=== PATIENT | female | born 1950 | race Caucasian/White ===

== ENCOUNTER 2018-08-19 12:53 | Inpatient (IN) | payer MEDICARE, OTHER ==
[~2018-08-19] VITALS: Ht 165.1 cm; Wt 81.0 kg
[~2018-08-19 12:53] MED LIST: ASCO-96 PO; BILB100C PO; BISA10SU54 PR; CALC-141 PO; CHOL400T2 PO; CYAN1TAB29 PO; GARL1CAP3 PO; HYDR2TAB29 PO; LISI-170 PO; MAGN400O7 PO; METH750T87 PO; POTASSIUM PO; RANI150C PO; SENN8.6T98 PO; VITA400C43 PO; selenium PO; vitamin b6 PO
--- NOTE | 2018-08-19 12:53 | NUR ---
BIBA from home c/o dizziness since 0700 this AM, worsens with repositioning, +NV, denies CP or SOB; PIV, 4mg zofran, BG [address] [employer] per EMS; pt changed into gown, responds approp to staff, comfort measures provided, sister at BS, call light within reach; cardiac, NIBP & SpO2 monitors in place.
[2018-08-19] MEDS ORDERED: ONDANSETRON 2MG/ML, 2ML IVPush ONE (13:00)
[2018-08-19] MEDS ORDERED: SODIUM CHLORIDE FLUSH 10ML SYR IVF ONE (13:00)
[2018-08-19] MEDS ORDERED: DIAZEPAM 5 MG/ML, 2ML IVPush ONE (13:00)
--- NOTE | 2018-08-19 13:10 | NUR ---
seen by PA, report given to Jessica ZARATE.
[2018-08-19] MEDS ORDERED: ONDANSETRON 2MG/ML, 2ML ONE (13:15)
--- NOTE | 2018-08-19 13:18 | NUR ---
Sent yellow slip to pharmacy for med request per EMAR. Recieved report from ELLIOT Ascencio. Assuming care of pt.
[2018-08-19 13:23] LABS: MD YES
[2018-08-19 13:26] LABS: ANION GAP 5 mmol/L (5-15); CALCIUM 8.9 mg/dL (8.5-10.1); CHLORIDE 106 mmol/L (98-107); CREATININE 0.83 mg/dL (0.55-1.02)
[2018-08-19 13:36] LABS: MEAN CORPUSCULAR HEMOGLOBIN 19.4 pg (27.0-34.8); PLATELET COUNT 305 x10^3/uL (130-400); RED BLOOD COUNT 4.32 x10^6/uL (3.82-5.3); RED CELL DISTRIBUTION WIDTH 19.6 % (9.6-15.2)
--- NOTE | 2018-08-19 13:39 | NUR ---
Placed bedpan under pt per request. Pt appreciative.
[2018-08-19 13:52] LABS: BASOPHILS % (AUTO) 0 % (0-1); EOSINOPHILS # (AUTO) 0.06 x10^3/uL (0-0.4); EOSINOPHILS % (AUTO) 1 % (1-7); LYMPHOCYTES # (AUTO) 0.94 x10^3/uL (1-3.4); LYMPHOCYTES % (AUTO) 11 % (22-44); MONOCYTES # (AUTO) 0.28 x10^3/uL (0.2-0.8); MONOCYTES % (AUTO) 3 % (2-9); NEUTROPHILS # (AUTO) 7.52 x10^3/uL (1.8-6.8); NEUTROPHILS % (AUTO) 86 % (42-75)
[2018-08-19 13:53] LABS: MEAN CORPUSCULAR HGB CONC 29.8 g/dL (32.4-35.8)
--- NOTE | 2018-08-19 13:55 | NUR ---
Removed pt from bedpan. Pt appreciative. Provided medicaiton per EMAR. NICOLASAN. No other needs expressed. Provided warm blankets for comfort measures. All safety measures in place, call light within reach.
[2018-08-19 13:56] LABS: ANISOCYTOSIS 1+; BAND#(MANUAL) 0.09 x10^3/uL; BANDS%(MANUAL) 1 % (0-7); EOS#(MANUAL) 0.09 x10^3/uL (0.0-0.4); EOS% (MANUAL) 1 % (1-7); LYMPH#(MANUAL) 1.06 x10^3/uL (1-3.4); LYMPHS% (MANUAL) 12 % (22-44); MONOS#(MANUAL) 0.09 x10^3/uL (0.3-2.7); MONOS% (MANUAL) 1 % (2-9); SEG#(MANUAL) 7.48 x10^3/uL (1.8-6.8); SEGS% (MANUAL) 85 % (42-75)
[2018-08-19 13:57] LABS: HYPOCHROMIA 2+; MICROCYTOSIS 2+; POLYCHROMASIA 1+
[2018-08-19 13:58] LABS: OVALOCYTES 1+; TARGET CELLS 1+
[2018-08-19 14:00] LABS: <PLATELET ESTIMATE> ADEQUATE; LARGE PLATELETS 1+
--- NOTE | 2018-08-19 15:24 | NUR ---
Pt back to room CT. Pt requesting water. Provided pt water. Assisted pt to sitting up with head of bed approximately at 30*. Pt states, "oh wow, my neck is starting to feel better, and I didn't get dizzy." NADN. Pt remains connceted to NIBP, continous pulse ox, and fibreglass gun hand. Call light within reach. All safety measures in place.
[2018-08-19] MEDS ORDERED: OMNIPAQUE 350 MG/ML, 100ML BOTTLE ONE (15:32)
[2018-08-19] MEDS ORDERED: MECLIZINE CHEWABLE 25 MG TAB PO ONE (16:00)
[2018-08-19] MEDS ORDERED: MECLIZINE CHEWABLE 25 MG TAB ONE (16:20)
--- NOTE | 2018-08-19 16:23 | NUR ---
Provided pt medication per EMAR. Pt beginning to feel dizzy and nauseated again. Pt resting on gurney connected to all monitors and 2L oxygen NC. All safety measures in place. Call light within reach. Family at bedside. Pt states, "I am dizzy and have a wave of nausea".
[2018-08-19] MEDS ORDERED: PROCHLORPERAZINE 5 MG/ML, 2ML ONE (17:04)
--- NOTE | 2018-08-19 17:16 | NUR ---
Provided medication per ED MD verbal order and SRINIVASARRudy MAKI Pt appreciative.
[2018-08-19] MEDS ORDERED: SCOPOLAMINE PATCH, 1.5MG PATCH.TD72 TD ONE (17:30)
[2018-08-19] MEDS ORDERED: PROCHLORPERAZINE 5 MG/ML, 2ML IVPush ONE (17:30)
--- NOTE | 2018-08-19 18:03 | NUR ---
Provided ice chips per pt request. Provided medication per EMAR. Pt appreciative. No other needs expressed at this time. Family at bedside. Call light within reach.
--- NOTE | 2018-08-19 18:56 | NUR ---
Provided bedside report to ELLIOT Santiago. All questions answered. ELLIOT Santiago assuming care of pt.
--- NOTE | 2018-08-19 19:32 | NUR ---
PT PLACED ON BEDPAN, ABLE TO USE BEDPAN TO VOID. PT RESTING COMFORTABLY IN BED, SISTER AT BEDSIDE.
[2018-08-19] MEDS ORDERED: ENALAPRILAT 1.25 MG/ML, 2ML IVPush PRN (20:00)
[2018-08-19] MEDS ORDERED: DIAZEPAM 2 MG TABLET PO PRN (20:00)
[2018-08-19] MEDS ORDERED: ACETAMINOPHEN 325 MG TABLET PO PRN (20:00)
[2018-08-19] MEDS ORDERED: ONDANSETRON 2MG/ML, 2ML IVPush PRN (20:00)
[2018-08-19] MEDS ORDERED: PROMETHAZINE 25 MG/ML, 1ML IM PRN (20:00)
--- NOTE | 2018-08-19 20:50 | NUR ---
REPORT TO CORI ZARATE FOR ROOM [id number]
[2018-08-19 21:20] VITALS: BP 131/83
[2018-08-19] MEDS: LACTATED RINGERS 1,000 ML IV SCH (22:21)
[2018-08-19] MEDS: LISINOPRIL 10 MG TABLET PO SCH (22:24)
[2018-08-20 01:35] VITALS: BP 94/59
[2018-08-20] MEDS ORDERED: POTA99TA2 PO (03:14)
[2018-08-20] MEDS: CYANOCOBALOMIN 100MCG TABLET PO SCH (09:00)
[2018-08-20 10:33] VITALS: BP 117/71
[2018-08-20] MEDS: LACTATED RINGERS 1,000 ML IV SCH (10:35)
[2018-08-20] MEDS: CHOLECALCIFEROL 400 UNITS TABLET PO SCH (10:35)
[2018-08-20] MEDS: MECLIZINE 12.5 MG TABLET PO PRN (10:35)
[2018-08-20] MEDS: CALCIUM CARBONATE 500 MG TABLET PO SCH (10:35)
[2018-08-20] MEDS: LISINOPRIL 10 MG TABLET PO SCH ×2 (10:35→21:26)
[2018-08-20] MEDS: ENOXAPARIN 40 MG/0.4 ML SQ SCH (10:36)
[2018-08-20] MEDS ORDERED: LORazepam 2 MG/ML, 1ML ONE (13:28)
[2018-08-20] MEDS ORDERED: LORazepam 2 MG/ML, 1ML IVPush ONE (13:30)
[2018-08-20 14:00] VITALS: BP 113/64
[2018-08-20] MEDS: AMOXICILLIN/CLAV 875-125MG TABLET PO SCH (16:17)
[2018-08-20] MEDS ORDERED: OMNIPAQUE 350 MG/ML, 50 ML BOTTLE ONE (18:17)
[2018-08-20 19:14] VITALS: BP 124/71
[2018-08-21] MEDS: LACTATED RINGERS 1,000 ML IV SCH (00:24)
[2018-08-21 01:10] VITALS: BP 114/65
[2018-08-21] MEDS: AMOXICILLIN/CLAV 875-125MG TABLET PO SCH (04:14)
[2018-08-21 06:50] VITALS: BP 109/66
[2018-08-21] MEDS: ENOXAPARIN 40 MG/0.4 ML SQ SCH (09:00)
[2018-08-21] MEDS: CYANOCOBALOMIN 100MCG TABLET PO SCH (09:36)
[2018-08-21] MEDS: LISINOPRIL 10 MG TABLET PO SCH (09:37)
[2018-08-21] MEDS: CHOLECALCIFEROL 400 UNITS TABLET PO SCH (09:39)
[2018-08-21] MEDS: CALCIUM CARBONATE 500 MG TABLET PO SCH (09:40)
[2018-08-21] MEDS: MECLIZINE 12.5 MG TABLET PO PRN (09:58)
[2018-08-21 12:25] VITALS: BP 106/62
[2018-08-21] MEDS ORDERED: LACT1CAP35 PO (12:48)
[2018-08-21] MEDS ORDERED: LISI-167 PO (12:48)
[2018-08-21] MEDS ORDERED: AMOX1TAB12 PO (12:48)
[2018-08-21] MEDS ORDERED: MECL-85 PO (12:48)
[2018-08-22] MEDS ORDERED: LISINOPRIL 10 MG TABLET PO SCH (09:00)
== END 2018-08-21 14:00 | disposition home or self-care (01) | DRG 552 ==
LOC: ED 17:03 → EDIP 17:33 → 4WST 21:25 → DCLOUNGE 08-21 13:52
PROVIDERS: ADMIT Internal Medicine; ATTEND Internal Medicine
DX: M50.322 Other cervical disc degeneration at C5-C6 level (principal); I10 Essential (primary) hypertension; M43.12 Spondylolisthesis, cervical region; M41.9 Scoliosis, unspecified; G89.29 Other chronic pain; Z90.49 Acquired absence of other specified parts of digestive tract; Z88.8 Allergy status to other drugs, medicaments and biological substances; Z88.5 Allergy status to narcotic agent; Z91.018 Allergy to other foods
CPT/HCPCS: 36415; 70496; 70498; 72126; 80048; 82040; 85025; 93005; 96374; 96375; 99285; G0378; J1650; J2405; J3360; Q9967; J0780; J2060; J7120